=== PATIENT | female | born 1985 | race Caucasian/White ===

== ENCOUNTER 2017-05-28 15:08 | Emergency (ER) | payer SELFPAY ==
[~2017-05-28] VITALS: Ht 165.1 cm; Wt 80.3 kg
[2017-05-28 15:16] VITALS: BP 142/106; Ht 165.1 cm; Wt 80.3 kg
== END 2017-05-28 16:07 | disposition home or self-care (01) ==
LOC: ED 15:08
DX: J30.9 Allergic rhinitis, unspecified (principal)

== ENCOUNTER 2018-01-18 20:51 | Emergency (ER) | payer MEDICAID ==
[2018-01-18 21:14] VITALS: BP 119/76; Ht 165.1 cm
== END 2018-01-18 23:25 | disposition left against medical advice (07) ==
LOC: ED 20:51
DX: Z53.21 Procedure and treatment not carried out due to patient leaving prior to being seen by health care provider (principal)

== ENCOUNTER 2018-03-21 19:38 | Emergency (ER) | payer MEDICAID ==
[~2018-03-21] VITALS: Ht 165.1 cm; Wt 83.5 kg
[2018-03-21 20:02] VITALS: BP 144/97; Ht 165.1 cm; Wt 83.5 kg
[2018-03-21 20:41] LABS: BASOPHIL % 0.5 % (0-2); PLATELET COUNT 381 x10^3mcL (130-400)
== END 2018-03-21 21:50 | disposition home or self-care (01) ==
LOC: ED 19:38
PROVIDERS: Emergency Medicine
DX: T19.2XXA Foreign body in vulva and vagina, initial encounter (principal); N76.0 Acute vaginitis; Z98.890 Other specified postprocedural states; X58.XXXA Exposure to other specified factors, initial encounter; Y93.89 Activity, other specified; Y92.89 Other specified places as the place of occurrence of the external cause; Y99.8 Other external cause status
CPT/HCPCS: 36415; 87491; 87591